=== PATIENT | female | born 1975 | race African-American/Black ===

== ENCOUNTER 2017-08-17 20:38 | Emergency (ER) | payer OTHER ==
[~2017-08-17] VITALS: Ht 149.9 cm; Wt 56.2 kg
[2017-08-17 21:08] VITALS: BP 162/94
[2017-08-17 23:23] LABS: ABSOLUTE BASOPHIL COUNT 0 /CUMM (0.0-0.2); ABSOLUTE EOSINOPHIL COUNT 0 /CUMM (0.0-0.7); ABSOLUTE GRANULOCYTE CT 11.7 /CUMM (1.4-6.5); ABSOLUTE LYMPH COUNT 2.2 /CUMM (1.2-3.4); ABSOLUTE MONOCYTE COUNT 0.5 /CUMM (0.10-0.60); BASOPHIL % 0.3 % (0.0-2.0); EOSINOPHIL % 0.3 % (0-5); HEMATOCRIT 40.4 % (37-47); MEAN CORPUSCULAR HGB 28.9 PG (27.0-31.0); MEAN CORPUSCULAR HGB CONC 32.6 G/DL (33.0-37.0); MEAN CORPUSCULAR VOLUME 88.5 FL (81.0-99.0); MEAN PLATELET VOLUME 9.4 FL (7.4-10.4); PLATELET COUNT 237 /CUMM (130-400); RBC DISTRIBUTION WIDTH 14.3 % (11.5-14.5); RED BLOOD CELL CT 4.57 /CUMM (4.20-5.40); WHITE BLOOD CELL COUNT 14.4 /CUMM (4.8-10.8)
--- NOTE | 2017-08-17 23:35 | ED GI/GU/ABDOMINAL COMPLAINT ---
History of Present Illness General Chief Complaint: Abdominal Pain/Flank Pain Stated Complaint: FLANK PAIN ON RIGHT SIDE Source: patient Exam Limitations: no limitations Vital Signs & Intake/Output Vital Signs & Intake/Output Vital Signs Date Time Temp Pulse Resp B/P B/P Pulse O2 O2 Flow FiO2 Mean Ox Delivery Rate 08/17 2107 98.3 102 16 162/94 100 Room Air ED Intake and Output 08/18 0000 08/17 1200 Intake Total Output Total Balance Patient 124 lb Weight Weight Reported by Patient Measurement Method Allergies Coded Allergies: erythromycin base (From ERYTHROCIN) (+N/+V/+D 08/17/17) Reconcile Medications Ondansetron HCl (Zofran) 4 MG TABLET 1 TAB PO Q6-8P PRN NAUSEA Oxycodone HCl/Acetaminophen (Percocet 5-325 MG Tablet) 5 MG-325 MG TABLET 1 TAB PO TID PRN PAIN Triage Note: PT PRESENTS TO THE ER C/O RLQ PAIN 8/10. PT LAST BM THIS MORNING.. PT C/O +N/+V. PT STATES THAT PAIN COMES AND GOES FOR THE PAST 2 MONTHS BUT THIS AM WAS WORSE.. PT STATES SHE FEELS A LUMP. Triage Nurses Notes Reviewed? yes ? N Is pt currently ? No Duration: constant Timing: recent history Severity Numbers: 8 Location: right lower quadrant Radiation: no radiation Activities at Onset: none HPI: Patient is a 42-year-old female with an unremarkable past medical history of present emergency room with a concern of a three-day history of worsening right lower quadrant localized abdominal pain. Patient does admit to a 3 month history of vague abdominal pain complaints that were intermittent however the past 3 days symptoms have significantly worsens with patient had one episode prior to arrival of vomiting persistent nausea occurs, denies any fever chills chest pain shortness of breath vaginal bleeding discharge dysuria hematuria. (Kulwant Rios) Past History Travel History Traveled to [place] past 21 day No Medical History Any Pertinent Medical History? none Surgical History Surgical History: non-contributory Psychosocial History What is your primary language Italian Tobacco Use: Current Daily Use Daily Tobacco Use Amount/Type: => 5 Cigarettes daily Family History Hx Contributory? No (Kulwant Rios) Review of Systems Review of Systems Constitutional: Reports: no symptoms. EENTM: Reports: no symptoms. Respiratory: Reports: no symptoms. Cardiovascular: Reports: no symptoms. GI: Reports: see HPI, abdominal pain. Genitourinary: Reports: no symptoms. Musculoskeletal: Reports: no symptoms. Skin: Reports: no symptoms. Neurological/Psychological: Reports: no symptoms. Hematologic/Endocrine: Reports: no symptoms. Immunologic/Allergic: Reports: no symptoms. All Other Systems: Reviewed and Negative (Kulwant Rios) Physical Exam Physical Exam General Appearance: mild distress Head: atraumatic Eyes: Bilateral: normal appearance. Ears, Nose, Throat, Mouth: hearing grossly normal Neck: normal inspection Respiratory: normal breath sounds Gastrointestinal: tenderness, RLQ PAIN Back: normal inspection Extremities: normal range of motion Neurologic/Psych: no motor/sensory deficits, awake Skin: intact, normal color Core Measures ACS in differential dx? No Sepsis Present: No Sepsis Focused Exam Completed? No (Kulwant Rios) Progress Differential Diagnosis: AAA, AMI, appendicitis, biliary colic, bowel obstruction , colon cancer, cholecystitis, diverticulitis, ectopic , endometritis, esophageal varices, gastritis, hepatitis, hernia, hemorrhoids, ischemic bowel, inflamm bowel dis, intrauterine , kidney stone, Marielle-Maegan tear, ovarian cyst, ovarian torsion, pancreatitis, PID/cervicitis, peptic ulcer, PUD/ GERD, perforated viscous, SBO, threatened AB, UTI/pyelo Plan of Care: Orders Procedure Date/time Status LACTIC ACID 08/18 0155 Active Add-on Test (ER Only) 08/18 0045 Active CULTURE,URINE 08/17 2307 Active URINALYSIS 08/17 2255 Complete LACTIC ACID 08/17 2254 Complete HUMAN BETA HCG SCREEN 08/17 2254 Complete COMPREHENSIVE METABOLIC PANEL 08/17 2254 Complete CBC WITHOUT DIFFERENTIAL 08/17 2254 Complete Laboratory Tests 08/17/17 2308: Anion Gap 12, Estimated GFR > 60, BUN/Creatinine Ratio 16.3, Glucose 94, Lactic Acid 0.9, Calcium 10.0, Total Bilirubin 0.4, AST 18, ALT 27, Alkaline Phosphatase 97, Total Protein 7.0, Albumin 4.2, Globulin 2.8, Albumin/Globulin Ratio 1.5, Total Beta HCG NEGATIVE, CBC w Diff NO MAN DIFF REQ, RBC 4.57, MCV 88.5, MCH 28.9, MCHC 32.6 L, RDW 14.3, MPV 9.4, Gran % 81.0 H, Lymphocytes % 15.3 L, Monocytes % 3.1, Eosinophils % 0.3, Basophils % 0.3, Absolute Granulocytes 11.7 H, Absolute Lymphocytes 2.2, Absolute Monocytes 0.5, Absolute Eosinophils 0, Absolute Basophils 0, Urinalysis LIGHT H, Urine Color YEL, Urine Clarity HAZY H, Urine pH 8.0, Ur Specific [place] 1.015, Urine Protein TRACE H , Urine Ketones 15 H, Urine Nitrite NEG, Urine Bilirubin NEG, Urine Urobilinogen 0.2, Ur Leukocyte Esterase NEG, Ur Microscopic SEDIMENT EXAMINED, Urine RBC RARE, Urine WBC RARE, Ur Epithelial Cells FEW, Urine Bacteria MOD H, Urine Mucus RARE, Urine Hemoglobin TRACE-INTACT, Urine Glucose NEG Microbiology 08/17 2307 URINE ROUT: Urine Culture - RECD Patient after IV morphine was administered at improvement of pain and nausea was improved with Zofran. CT scan shows concerns of right adnexal mass or cyst patient was strongly advised to establish a [facility] upon discharge patient looks well no apparent distress and will comply with discharge structures and no questions and was able tolerate by mouth Diagnostic Imaging: Viewed by Me: CT Scan. Radiology Impression: SEE COMMENTS Initial ED EKG: none Comments: PATIENT: GONZALEZ SMYTH PRESENT AGE: 42 PATIENT ACCOUNT NO: [id number] : 73 LOCATION: [facility] ORDERING PHYSICIAN: Kulwant PRIETO SERVICE DATE: 08/17/17 EXAM TYPE: CAT - CT ABD & PELVIS W IV CONTRAST EXAMINATION: CT ABDOMEN AND PELVIS WITH CONTRAST CLINICAL INFORMATION: Right lower quadrant pain COMPARISON: None TECHNIQUE: Multidetector volumetric imaging was performed of the abdomen and pelvis following IV administration of 95 mL of Optiray 320 intravenous contrast. Sagittal and coronal reformatted images were obtained on the technologist's workstation. DLP: 243 mGy-cm FINDINGS: LUNG BASES: The visualized lung bases are unremarkable. LIVER, GALLBLADDER, AND BILIARY TREE: The liver is normal in size, shape, and attenuation. No focal hepatic lesion or biliary ductal dilatation is present. The gallbladder is unremarkable with no evidence of radiopaque gallstones, gallbladder wall thickening, or obvious pericholecystic inflammatory changes. PANCREAS: Unremarkable. SPLEEN: Small in size with no focal abnormality. ADRENAL GLANDS: Unremarkable. KIDNEYS AND URETERS: The kidneys are normal in size, shape, and attenuation. No hydronephrosis, hydroureter, or calculi seen. No perinephric stranding. BLADDER: Unremarkable. GASTROINTESTINAL TRACT: The stomach is unremarkable. The small bowel is normal in caliber without obstruction. Normal appendix. No definite colonic wall thickening, although evaluation in the region of the cecum is somewhat limited. No free air. ABDOMINAL WALL: No significant hernia is appreciated. LYMPH NODES: Normal. VASCULAR: Unremarkable. PELVIC VISCERA: The uterus is heterogeneous. 2 x 1.6 cm enhancing lesion at the uterine fundus likely representing a fibroid. There is a complex cystic lesion in the right adnexa. While the largest component is fluid in attenuation, there is a peripheral fat attenuation component. This measures 7.3 x 4.8 x 4.8 cm and is suggestive of a dermoid. Suspect a small amount of adjacent free fluid. There is a left ovarian 2.1 cm follicle. OSSEOUS STRUCTURES: No acute or suspicious osseous abnormality. IMPRESSION: Complex right adnexal mass with lipomatous component most suggestive of a dermoid cyst. There is likely a small amount of adjacent free fluid. Heterogeneous appearance of the uterus suggestive of multiple fibroids area in Normal appendix. DICTATED BY: Guille Stewart MD DATE/TIME DICTATED:08/18/1729 FINNISH RUBBER:HYACINTH DATE/TIME TRANSCRIBED:08/18/1729 CONFIDENTIAL, DO NOT COPY WITHOUT APPROPRIATE AUTHORIZATION. <Electronically signed in [place] (Kulwant Rios) Departure Departure Disposition: HOME OR SELF CARE Condition: Stable Clinical Impression Primary Impression: Adnexal cyst Secondary Impressions: Abdominal pain Referrals: Mike ANDUJAR,Gal Mayers MD,Anshul Munguia (PCP/Family) Additional Instructions: As discussed begin the prescription of Percocet for pain, begin the prescription of Zofran for nausea, tomorrow please follow-up with [facility] to establish Dr. Mckeon for further evaluation treatment, if symptoms worsen return to the emergency room, prescription is waiting at [facility]. Departure Forms: Customer Survey General Discharge Information Prescriptions: Current Visit Scripts Oxycodone HCl/Acetaminophen (Percocet 5-325 MG Tablet) 1 TAB PO TID PRN PAIN #10 TAB Ondansetron HCl (Zofran) 1 TAB PO Q6-8P PRN NAUSEA #10 TAB (Kulwant Rios) PA/LIME HIDE INSPECTOR Co-Sign Statement Statement: ED Attending supervision documentation- [] I saw and evaluated the patient. I have also reviewed all the pertinent lab results and diagnostic results. I agree with the findings and the plan of care as documented in the PA's/LIME HIDE INSPECTOR's documentation. [x] I have reviewed the ED Record and agree with the PA's/LIME HIDE INSPECTOR's documentation. [] Additions or exceptions (if any) to the PAs/LIME HIDE INSPECTOR's note and plan are summarized below: [] (Madina ANDUJAR,Olayinka Ortiz)
--- NOTE | 2017-08-18 00:37 | CT SCAN REPORT ---
EXAMINATION: CT ABDOMEN AND PELVIS WITH CONTRAST CLINICAL INFORMATION: Right lower quadrant pain COMPARISON: None TECHNIQUE: Multidetector volumetric imaging was performed of the abdomen and pelvis following IV administration of 95 mL of Optiray 320 intravenous contrast. Sagittal and coronal reformatted images were obtained on the technologist's workstation. DLP: 243 mGy-cm FINDINGS: LUNG BASES: The visualized lung bases are unremarkable. LIVER, GALLBLADDER, AND BILIARY TREE: The liver is normal in size, shape, and attenuation. No focal hepatic lesion or biliary ductal dilatation is present. The gallbladder is unremarkable with no evidence of radiopaque gallstones, gallbladder wall thickening, or obvious pericholecystic inflammatory changes. PANCREAS: Unremarkable. SPLEEN: Small in size with no focal abnormality. ADRENAL GLANDS: Unremarkable. KIDNEYS AND URETERS: The kidneys are normal in size, shape, and attenuation. No hydronephrosis, hydroureter, or calculi seen. No perinephric stranding. BLADDER: Unremarkable. GASTROINTESTINAL TRACT: The stomach is unremarkable. The small bowel is normal in caliber without obstruction. Normal appendix. No definite colonic wall thickening, although evaluation in the region of the cecum is somewhat limited. No free air. ABDOMINAL WALL: No significant hernia is appreciated. LYMPH NODES: Normal. VASCULAR: Unremarkable. PELVIC VISCERA: The uterus is heterogeneous. 2 x 1.6 cm enhancing lesion at the uterine fundus likely representing a fibroid. There is a complex cystic lesion in the right adnexa. While the largest component is fluid in attenuation, there is a peripheral fat attenuation component. This measures 7.3 x 4.8 x 4.8 cm and is suggestive of a dermoid. Suspect a small amount of adjacent free fluid. There is a left ovarian 2.1 cm follicle. OSSEOUS STRUCTURES: No acute or suspicious osseous abnormality. IMPRESSION: Complex right adnexal mass with lipomatous component most suggestive of a dermoid cyst. There is likely a small amount of adjacent free fluid. Heterogeneous appearance of the uterus suggestive of multiple fibroids area in Normal appendix.
[2017-08-18] MEDS ORDERED: PERCOCET 5-3251 EACH PO (00:47)
[2017-08-18] MEDS ORDERED: ZOFRAN4 M2 PO (00:47)
== END 2017-08-18 01:19 ==
LOC: ERH 20:38
PROVIDERS: Physician Assistant
DX: N85.8 Other specified noninflammatory disorders of uterus (principal)
CPT/HCPCS: 74177; 81001; 87086; 96374; 96375; J2405